=== PATIENT | female | born 2005 | race Caucasian/White ===

== ENCOUNTER 2025-03-18 15:20 | Emergency (ER) | payer SELFPAY ==
[~2025-03-18] VITALS: Ht 162.6 cm; Wt 47.5 kg
[2025-03-18 15:22] VITALS: BP 115/87; TEMP 97.3; O2SAT 98
[2025-03-18] MEDS ORDERED: SPIR-10 PO (15:28)
== END 2025-03-18 16:07 | disposition left against medical advice (07) ==
LOC: M ED 15:20
DX: Z53.21 Procedure and treatment not carried out due to patient leaving prior to being seen by health care provider (principal)

== ENCOUNTER → 2025-03-19 | Outpatient (CLI) | payer BC ==
[~2025-03-19] MED LIST: SPIR-10 PO
== END ==
LOC: M RAD 10:13
DX: R10.2 Pelvic and perineal pain (principal)

== ENCOUNTER → 2025-03-29 | Outpatient (CLI) | payer BC | LOC: M LAB 09:18 | PROVIDERS: ATTEND Family Medicine | DX: Z11.1 Encounter for screening for respiratory tuberculosis (principal) ==